=== PATIENT | female | born 1970 | race Hispanic/Latino ===

== ENCOUNTER 2017-06-21 15:50 | Emergency (ER) | payer SELFPAY ==
[2017-06-21] MEDS ORDERED: Ketorolac Tromethamine 60 MG/2 ML VIAL ONE (17:03)
[2017-06-21] MEDS ORDERED: Dexamethasone 10 MG/ML VIAL ONE (17:03)
[2017-06-21] MEDS ORDERED: Ketorolac Tromethamine 30 MG/ML VIAL ONE (18:25)
[2017-06-21] MEDS ORDERED: Acetaminophen 500 MG TAB ONE (18:26)
--- NOTE | 2017-06-21 19:04 | RAD ---
CHEST TWO VIEW 06/21/17 HISTORY: Cough. COMPARISON: None. FINDINGS: Lungs are without focal air space consolidation, pneumothorax or effusion. The cardiac silhouette and mediastinal contours appear within normal limits. There is a lower thoracic spine compression fracture, age indeterminate, involving likely a T11 verte brae. IMPRESSION: 1. No acute intrathoracic abnormality. 2. Likely T11 vertebrae, age indeterminate compression fracture. Recommend correlation with focal rashad n. POS: [facility]
== END 2017-06-21 18:19 | disposition home or self-care (01) ==
LOC: EDBD 15:50 → ERS 15:50
DX: J40 Bronchitis, not specified as acute or chronic (principal); G89.29 Other chronic pain; F20.9 Schizophrenia, unspecified
CPT/HCPCS: 71046; 94640; 96372; J1100; J1885; J7620

== ENCOUNTER 2017-08-03 10:41 | Emergency (ER) | payer SELFPAY ==
[2017-08-03] MEDS ORDERED: Cyclobenzaprine 10 MG TAB ONE (12:20)
[2017-08-03] MEDS ORDERED: Ketorolac Tromethamine 30 MG/ML VIAL ONE (12:21)
== END 2017-08-03 13:09 | disposition home or self-care (01) ==
LOC: EDBD 10:41 → ERS 10:41
DX: M54.2 Cervicalgia (principal); G89.29 Other chronic pain; F41.9 Anxiety disorder, unspecified; F32.9 Major depressive disorder, single episode, unspecified; F20.9 Schizophrenia, unspecified
CPT/HCPCS: 96372; J1885